=== PATIENT | female | born 1980 | race Caucasian/White ===

== ENCOUNTER 2017-06-19 16:18 | Outpatient (CLI) | payer BC ==
--- NOTE | 2017-06-19 17:32 | MRI ---
EXAM: MRI LUMBAR SPINE WITHOUT CONTRAST 06/19/17 HISTORY: Lumbar radiculopathy. Chronic lumbar spine pain. recently in the past week the patient had injections which are not helping. Patient is now having numbness and tingling in the left hip, radiating down t he left foot. COMPARISON: None. TECHNIQUE: Lumbar spine MRI is performed without intravenous gadolinium administration. Multisequential, multipl nav imaging is performed. Appropriate T1 marrow signal intensity in the lumbar vertebrae. Lumbar spine vertebral body height is maintained. There is no fracture. No significant STIR hyperintensity to suggest vertebral body edema or ligamentous injury. Conus medullaris terminates at the lower aspect of L1. Symmetric signal inten sity of the psoas muscles. Appropriate signal intensity of the visualized solid organs. T12-L1: Adequate disc hydration. No significant central canal or foraminal narrowing. L1-L2: Adequate disc hydration. No significant central canal or foraminal narrowing. L2-L3: Adequate disc hydration. No significant central canal or foraminal narrowing. L3-L4: Adequate disc hydration. No significant central canal or foraminal narrowing. L4-L5: Adequate disc hydration. There is generalized disc bulge, ligamentum flavum thickening and fac et hypertrophy without significant central canal stenosis. Neural foramina are patent bilaterally. L5-S1: Desiccation with mild loss of disc space height. There is a generalized disc bulge without sig nificant central canal stenosis. There is a T2 hyperintensity along the posterior aspect of the disc which may represent a fissure. Mild bilateral foraminal narrowing. IMPRESSION: Degenerative changes of the lumbar spine at L5-S1 with what appears to be a fissure within the disc. There is associated minimal disc bulge, without significant central canal stenosis. POS: [facility]
== END 2017-06-19 16:19 | disposition home or self-care (01) ==
LOC: MRI 16:18
PROVIDERS: ATTEND Anesthesiology Pain Medicine
DX: M47.27 Other spondylosis with radiculopathy, lumbosacral region (principal)
CPT/HCPCS: 72148

== ENCOUNTER 2017-08-28 23:01 | Emergency (ER) | payer BC ==
[2017-08-28 23:26] LABS: #Basophils 0.1 thou/uL (0.0-0.2); #Eosinphils 0.3 thou/uL (0.0-0.7); #Lymphocytes 5.9 thou/uL (1.20-3.40); #Monocytes 0.6 thou/uL (0.11-0.59); #Neutrophils 6.7 thou/uL (1.40-6.50); %Basophils 1.1 % (0.0-1.0); %Eosinophils 2.2 % (0.0-10.0); %Monocytes 4.7 % (0.0-10.0); Mean Corpuscular HGB CONC 33.7 g/dL (32.0-36.0); Mean Corpuscular Hemoglobin 30.7 pg (27.0-31.0); Mean Corpuscular Volume 91.1 fL (78.0-98.0); Mean Platelet Volume 7.2 fL (7.4-10.4); Platelet Count 370 thou/uL (130-400); RBC Distribution Width 11.9 % (11.5-14.5); Red Blood Cell (RBC) Count 4.55 mill/uL (4.20-5.40); White Blood Cell (WBC) Count 13.6 thou/uL (4.8-10.8)
--- NOTE | 2017-08-28 23:53 | RAD ---
RADIOGRAPH CHEST 1 VIEW: 08/28/17 HISTORY: 37-year-old female with mid sternal chest pain. FINDINGS: There are no air space densities, pulmonary edema, pneumothorax, or cardiomegaly. The lateral costop hrenic angles are sharp. IMPRESSION: No acute cardiopulmonary findings. alcides [] POS: [facility]
[2017-08-28 23:54] LABS: CKMB 1.1 ng/mL (0-6.6); Troponin I Less than 0.010 ng/mL (< 0.028)
== END 2017-08-29 00:23 | disposition home or self-care (01) ==
LOC: ERS 23:01
DX: R07.81 Pleurodynia (principal); E11.9 Type 2 diabetes mellitus without complications; E03.9 Hypothyroidism, unspecified; F32.9 Major depressive disorder, single episode, unspecified
CPT/HCPCS: 36415; 71045; 82553; 84484; 85025; 93005

== ENCOUNTER 2017-08-31 00:29 | Observation (INO) | payer BC ==
[2017-08-31 01:14] LABS: #Basophils 0.1 thou/uL (0.0-0.2); #Eosinphils 0.3 thou/uL (0.0-0.7); #Lymphocytes 4.2 thou/uL (1.20-3.40); #Monocytes 0.6 thou/uL (0.11-0.59); #Neutrophils 5.1 thou/uL (1.40-6.50); %Basophils 1.1 % (0.0-1.0); %Lymphocytes 40.5 % (21.0-51.0); %Monocytes 5.8 % (0.0-10.0); %Neutrophils 49.7 % (42.0-75.0); Hemoglobin 14.1 g/dL (12.0-16.0); Mean Corpuscular HGB CONC 34.5 g/dL (32.0-36.0); Mean Corpuscular Hemoglobin 31.4 pg (27.0-31.0); Mean Corpuscular Volume 90.8 fL (78.0-98.0); Mean Platelet Volume 7.3 fL (7.4-10.4); Platelet Count 355 thou/uL (130-400); RBC Distribution Width 11.8 % (11.5-14.5); White Blood Cell (WBC) Count 10.3 thou/uL (4.8-10.8)
[2017-08-31 01:24] LABS: ALT (SGPT) 11 U/L (8-55); AST (SGOT) 12 U/L (5-34); Alkaline Phosphatase 114 U/L (40-150); Anion Gap 13 mmol/L (10-20); BUN (Urea Nitrogen) 18 mg/dL (7.0-18.7); Bilirubin, Total 0.2 mg/dL (0.2-1.2); Calc. Creatinine Clearance 0 mL/min (70-130); Calcium 9.4 mg/dL (7.8-10.44); Carbon Dioxide 22 mmol/L (22-29); Chloride 105 mmol/L (98-107); Estimated GFR-MDRD 67; Globulin 3.1 g/dL (2.4-3.5); Glucose 283 mg/dL (70-105); Potassium 3.8 mmol/L (3.5-5.1); Protein, Total 7.1 g/dL (6.0-8.3); Sodium 136 mmol/L (136-145)
[2017-08-31 01:29] LABS: CKMB 0.9 ng/mL (0-6.6); Troponin I Less than 0.010 ng/mL (< 0.028)
[2017-08-31 02:07] LABS: CK (CPK) 30 U/L (29-168); Lipase 13 U/L (8-78)
[2017-08-31 05:05] LABS: Troponin I Less than 0.010 ng/mL (< 0.028)
[2017-08-31] MEDS ORDERED: Acetaminophen 325 MG TAB PO PRN ×2 (05:07→11:22)
[2017-08-31 05:56] VITALS: BMI 37.0
[2017-08-31] MEDS ORDERED: Dextrose 5% in Water 1,000 ML IV PRN (07:28)
[2017-08-31] MEDS ORDERED: Dextrose 50% Abboject 50 ML SYRINGE SLOW IVP PRN (07:28)
[2017-08-31] MEDS ORDERED: HumaLOG 300 UNITS/3 ML VIAL SC PRN ×2 (07:28)
[2017-08-31 07:40] LABS: Cardiac Risk 3.6 (Less than 4.5)
[2017-08-31 07:44] LABS: Troponin I Less than 0.010 ng/mL (< 0.028)
--- NOTE | 2017-08-31 08:46 | RAD ---
TWO VIEWS OF THE CHEST: COMPARISON: None. HISTORY: Chest pain for 2 days in the right chest. FINDINGS: Two views of the chest show normal sized cardiomediastinal silhouette. There is no evidence of consol idation, mass, or pleural effusion. The bones are unremarkable. IMPRESSION: No evidence of acute cardiopulmonary disease. POS: [facility]
[2017-08-31] MEDS ORDERED: Aspirin 325 MG TAB PO SCH ×2 (09:00)
[2017-08-31] MEDS ORDERED: Levothyroxine Sodium 25 MCG TAB PO SCH (09:00)
[2017-08-31] MEDS ORDERED: HYDROcodone/Acetaminophen 5/325 mg Tablet PO PRN (11:22)
[2017-08-31] MEDS ORDERED: Diabetic Tussin 200 MG/10 ML UDCUP PO PRN (11:22)
[2017-08-31] MEDS ORDERED: Ondansetron ODT 4 MG TAB PO PRN (11:22)
[2017-08-31] MEDS ORDERED: Eucerin (Mineral Oil/Petrolatum,White) 30 gm Jar TOP PRN (11:22)
[2017-08-31] MEDS ORDERED: Senokot 8.6 MG TAB PO PRN (11:22)
[2017-08-31] MEDS ORDERED: hydrALAZINE 20 MG/ML VIAL SLOW IVP PRN (11:22)
[2017-08-31] MEDS ORDERED: Milk Of Magnesia 30 ML UDCUP PO PRN (11:22)
[2017-08-31] MEDS ORDERED: Ondansetron HCl/PF 4 MG/2 ML Vial IVP PRN (11:22)
[2017-08-31] MEDS ORDERED: Mag-Al 1200 mg/1200 mg/30 ML UDCUP PO PRN (11:22)
[2017-08-31 11:26] VITALS: BP 128/79; TEMP 98.8
--- NOTE | 2017-08-31 11:32 | NM ---
NUCLEAR MEDICINE CARDIAC PERFUSION EXAMINATION WITH EJECTION FRACTION: HISTORY: A 37-year-old female with chest pain and diabetes. TECHNIQUE: A stress-only nuclear medicine cardiac perfusion examination was performed. This was performed using 31.7 mCi of Technetium 99m sestamibi and LexiScan. FINDINGS: No perfusion defects are seen on the tomographic images with stress. Gated images show normal wall motion with an ejection fraction of greater than 70%. EDV is 67 mL. LHR is 0.6. IMPRESSION: No perfusion defects with stress. POS: [facility]
--- NOTE | 2017-08-31 11:48 | SS ---
DATE OF ADMISSION: 08/31/2017 at 4:00 a.m. PRIMARY CARE PHYSICIAN: Dr. Ulysses Ascencio. REASON FOR ADMISSION: Chest pain. HISTORY OF PRESENT ILLNESS: A 37-year-old female who has underlying history of anxiety, depression, hypothyroidism, gastroesophageal reflux disease, diabetes type 2, and obesity, who came to emergency room with the complaint of chest pain. Patient reports that chest pain started on afternoon time. Her pain was substernal in location. Patient reports that on she had pain around 2: 00 p.m. and pain was persistent and that is why she took tramadol and her pain subsided in the evenin g time after several hours. There was no radiation. There was no association of nausea, vomiting, d iaphoresis. Again, she had similar type of substernal pain on Friday around 2:00 p.m. and patient florence s to take multiple times, tramadol and ibuprofen to reduce her pain, but medication was only momentar angel reducing her pain and pain was not going away completely. During night time around 9:00, she too k aspirin and after that her pain subsided. Again, this morning she was having similar type of pain. She took tramadol, but as she was having intermittent chest pain and that is why she was worried ab out and decided to go to emergency room for evaluation. She came to emergency room on 08/28/2017. A t that time, local workup was done and it was negative and she was discharged home. Patient denies a ny similar type of pain in the past. She denies any belching. She denies any vomiting. She denies any UTI symptoms. She denies any constipation, diarrhea, melena, hematochezia. She denies any heada ches. She denies any dizziness, syncope. She denies any orthopnea, PND or leg swelling. She never had any cardiac workup in the past. She did not have any fever or cough. She denies any r elation of chest discomfort with food, respiration or activity. She was evaluated today in the emergency room earlier and her cardiogram was normal. Routine blood t est including CBC, BMP was normal. Her D-dimer was slightly elevated and that is why CT angio was do ne, which was negative for pulmonary embolism. Her BNP was normal. Earlier today when I saw this pa tient this morning at that time, because she did not eat anything since she arrived to ER, she was hy poglycemic and that is why she was given orange juice and D50 was given. We plan for stress test lat er on today. REVIEW OF SYSTEMS: The following complete review of systems was negative, unless otherwise mentioned in the HPI or below: Constitutional: Weight loss or gain, ability to conduct usual activities. Skin: Rash, itching. Eyes: Double vision, pain. ENT/Mouth: Nose bleeding, neck stiffness, pain, tenderness. Cardiovascular: Palpitations, dyspnea on exertion, orthopnea. Respiratory: Shortness of breath, wheezing, cough, hemoptysis, fever or night sweats. Gastrointestinal: Poor appetite, abdominal pain, heartburn, nausea, vomiting, constipation, or diarr hea. Genitourinary: Urgency, frequency, dysuria, nocturia. Musculoskeletal: Pain, swelling. Neurologic/Psychiatric: Anxiety, depression. Allergy/Immunologic: Skin rash, bleeding tendency. Please see my HPI for pertinent positive and negative. All other review of systems reviewed and nega tive except as mentioned in the HPI. PAST MEDICAL HISTORY: Morbid obesity, diabetes type 2, insulin requiring, hypothyroidism, gastroesop hageal reflux disease. PAST SURGICAL HISTORY: Tonsillectomy and adenoidectomy. PAST PSYCHIATRIC HISTORY: Anxiety and depression. SOCIAL HISTORY: The patient is . She denies any tobacco, alcohol or illicit drug abuse. FAMILY HISTORY: No strong family history of premature coronary artery disease, stroke or cancer. EMERGENCY ROOM COURSE: Patient is given aspirin 324 mg, morphine 4 mg x2, IV fluid. ALLERGIES: AMOXICILLIN, LEVOFLOXACIN. CURRENT HOME MEDICATIONS: Prozac 40 mg p.o. at bedtime, NovoLog insulin as per sliding scale, Synthr oid 25 mcg p.o. daily, pravastatin 20 mg p.o. at bedtime, Seroquel 200 mg p.o. at bedtime. The patient is also taking tramadol and ibuprofen as needed basis. PHYSICAL EXAMINATION: VITAL SIGNS: On arrival, blood pressure 114/72, pulse 94, respiratory rate 18, temperature 98.0, sat uration 97% on room air, weight 99.8 kilograms. GENERAL: The patient is currently alert, awake, no obvious acute distress. HEAD: Normocephalic, atraumatic. EYES: Pupils round, reactive to light. Extraocular muscle intact. ENT: Oropharynx within normal limits. Moist mucous membranes. No oral lesion, no pharyngeal erythe ma, no exudate. NECK: Supple, no JVD, no thyromegaly, no carotid bruit. No jugular venous distention. LUNGS: Clear to auscultation without any rhonchi or rales. CARDIAC: S1, S2 regular. No murmur, no gallop, no rub. ABDOMEN: Soft, no epigastric tenderness, no Tapia sign, no peritoneal sign, no suprapubic tendernes s. No organomegaly, no mass. Obesity present. BACK: Unremarkable. No CVA tenderness. EXTREMITIES: Upper extremity, passive movement of all joints are normal. Lower extremity, no edema, no calf tenderness. Good distal pulsation. SKIN: No skin rash. HEMATOLOGIC: No lymphadenopathy. PSYCHIATRIC: Normal affect. SIGNIFICANT LABORATORY DATA AND IMAGING: EKG showing normal sinus rhythm within normal limits. Ches t x-ray based on my review, no acute cardiopulmonary process. CT angio negative for pulmonary emboli sm. Abdominal ultrasound normal. CBC: WBC 10.3, hemoglobin 14.1, platelets 355. D-dimer 0.47. BM P: Sodium 136, potassium 3.8, chloride 105, carbon dioxide 22, anion gap 13, BUN 18, creatinine 0.93 , glucose 283, calcium 9.4. LFT: AST 12, ALT 11, alkaline phosphatase 114, albumin 4.0. Cardiac en zymes negative. BNP less than 10. Triglycerides 60, cholesterol 146, LDL 93, HDL 41. ASSESSMENT AND PLAN: Chest pain. Patient has substernal chest discomfort. Her description seems li ke gastroesophageal reflux disease. She has few respective for coronary artery disease including svetlana betes, obesity, hypothyroidism, and dyslipidemia. We will plan for doing stress test to rule out acu te coronary syndrome. Her cardiac enzymes are negative. Her EKG is negative. Her D-dimer is elevat ed, but CT angio was negative for pulmonary embolism. If stress test is negative, then we will consi alverto giving her prescription for Protonix. We advised her to avoid NSAIDs. Healthy lifestyle measure s discussed with the patient. 2. Anxiety and depression. Continue Prozac 40 mg p.o. at bedtime, Seroquel 200 mg p.o. at bedtime. 3. Hypothyroidism. Continue Synthroid 25 mcg p.o. daily. 4. Dyslipidemia. Lipid profile checked and it is okay. Continue pravastatin 20 mg p.o. at bedtime. 5. Diabetes type 2. The patient will continue her insulin pump as directed. 6. Morbid obesity with BMI of 37. Dietary education given, weight loss education given. Healthy li festyle measures discussed with the patient. 7. Hypoglycemia associated with diabetes. The patient is advised to turn off her insulin pump and t he patient is given D50. 8. Gastroesophageal reflux disease. We are starting Protonix therapy. CODE STATUS: The patient is FULL CODE. The patient is making her decision by herself. Disposition plan based on stress test result, likely today. DATE OF ADMISSION: 08/31/2017 at 4:00 a.m. DATE OF DISCHARGE: 08/31/2017 DISCHARGE DISPOSITION: Home. PRIMARY DISCHARGE DIAGNOSES: Chest pain, ruled out acute coronary syndrome, likely gastroesophageal reflux disease. SECONDARY DISCHARGE DIAGNOSES: Anxiety, depression, diabetes type 2, obesity, dyslipidemia. PRIMARY PROCEDURE AND OPERATION: None. RADIOLOGIC INVESTIGATION: Chest x-ray normal. Abdominal ultrasound normal. CT angio negative for P E. Stress test result is pending. SIGNIFICANT LABORATORY DATA: Please see above my laboratory finding. CONTRAINDICATIONS: None. CODE STATUS: FULL CODE. INPATIENT CONSULTANTS: None. ALLERGIES: AMOXICILLIN, LEVOFLOXACIN. DISCHARGE PLAN: Post hospital, the patient will follow up with primary care physician in 1 week. DISCHARGE MEDICATIONS: Prozac 40 mg p.o. at bedtime, insulin pump as directed, Synthroid 25 mcg p.o. daily, Protonix 40 mg p.o. daily, pravastatin 20 mg p.o. at bedtime, Seroquel 200 mg p.o. at bedtime . HOSPITAL COURSE: The patient was admitted for chest pain. Her chest pain description what sounds li ke GERD. We did a stress test to rule out underlying ischemia. Her cardiac enzyme are negative. He r lipid profile is good. Her telemetry remained normal. She had hypoglycemia that was corrected wit h D50. The patient will continue all her previous medication. We are starting Protonix therapy. Al l new medication prescription sent to her pharmacy. Patient waiting for stress test result. If negative, then we will discharge her later on today. The patient was admitted and discharged on the same day.
[2017-08-31] MEDS ORDERED: ISOVUE-370 76%-LOCM 1 ML ONE (12:19)
[2017-08-31] MEDS ORDERED: Regadenoson 0.4 MG/5 ML SYRINGE ONE (13:27)
--- NOTE | 2017-08-31 14:15 | ULT ---
PRELIMINARY REPORT/[facility]/EMERGENTY AFTER-HOURS PROCEDURE US Abdomen Limited, Right Upper Quadrant CLINICAL HISTORY: 37 years old, female; Pain; Other: Upper abd/ chest pain TECHNIQUE: Real-time ultrasound of the right upper quadrant with image documentation. COMPARISON: No relevant prior studies available. FINDINGS: Liver: Hepatic steatosis. No intrahepatic bile duct dilation. Gallbladder: Gallbladder is distended. No wall thickening, cholelithiasis, or pericholecystic fluid. Common bile duct: Unremarkable as visualized. No stones. No dilation. Pancreas: Unremarkable as visualized. Right kidney: Unremarkable. No stones. No solid mass. No hydronephrosis. IMPRESSION: No acute findings. Thank you for allowing us to participate in the care of your patient. Dictated and Authenticated by: Dino Chow MD 08/31/2017 4:37 AM Central Time ([place] & [place]) FINAL REPORT EMERGENT AFTER HOURS RIGHT UPPER QUADRANT ABDOMINAL ULTRASOUND: FINDINGS/IMPRESSION: I agree with the findings and impression given in the preliminary report per [facility] physician. No kady dence of significant intraabdominal abnormality. Increased echogenicity of the liver may be secondar y to fatty infiltration. POS: [facility]
--- NOTE | 2017-08-31 14:18 | CT ---
PRELIMINARY REPORT/[facility]/EMERGENTY AFTER-HOURS PROCEDURE CT Angiography Chest With Intravenous Contrast CLINICAL HISTORY: 37 years old, female; Pain; Chest pain; Patient HX: F37 presents to ed C/O cp. PT reports pain began spreading to belly button and under r breast. PT reports dizziness, nausea onset today. PT has tried motrin and tramadol for relief, no effect. PT reports at 20: 30 she was in tears, chewed a baby aspir in, had no effect. TECHNIQUE: Axial computed tomographic angiography images of the chest with intravenous contrast using CT angiogr aphy protocol. MIP reconstructed images were created and reviewed. COMPARISON: No relevant prior studies available. FINDINGS: Pulmonary arteries: Normal. No pulmonary emboli. Aorta: Normal. No aortic aneurysm. No aortic dissection. Lungs: Normal. No consolidation. No masses. Pleural space: Normal. No pneumothorax. No pleural effusion. Heart: Normal. No cardiomegaly. No pericardial effusion. Mediastinum: Esophagus is unremarkable. Bones/joints: Unremarkable. No acute fracture. Soft tissues: Unremarkable. Lymph nodes: Unremarkable. No enlarged lymph nodes. IMPRESSION: No acute findings. Thank you for allowing us to participate in the care of your patient. Dictated and Authenticated by: Dino Chow MD 08/31/2017 4:44 AM Central Time ([place] & [place]) FINAL REPORT EMERGENT AFTER HOURS CTA OF THE CHEST WITH CONTRAST: TECHNIQUE: Multiple contiguous axial images were obtained in a CTA of the chest with contrast per pulmonary embo lism protocol. Three-D oblique MIP reformats and direct coronal reformats were performed. FINDINGS/IMPRESSION: I agree with the findings and impression given in the preliminary report per [facility] physician. No kady dence of pulmonary thromboembolism POS: [facility]
[2017-08-31] MEDS ORDERED: Simvastatin 5 MG TAB PO SCH (21:00)
[2017-08-31] MEDS ORDERED: Non-Formulary Item 1 EACH (Fluoxetine Hcl [Prozac] 40 MG) PO SCH (21:00)
[2017-08-31] MEDS ORDERED: FLUoxetine HCl 20 MG CAP PO SCH (21:00)
[2017-08-31] MEDS ORDERED: Pravastatin Sodium 20 MG TAB PO SCH (21:00)
== END 2017-08-31 15:01 | disposition home or self-care (01) ==
LOC: ERS 00:29 → 2SW 04:01
PROVIDERS: ADMIT Hospitalist; ATTEND Hospitalist
DX: R07.2 Precordial pain (principal); F41.8 Other specified anxiety disorders; E03.9 Hypothyroidism, unspecified; E78.5 Hyperlipidemia, unspecified; E11.9 Type 2 diabetes mellitus without complications; E66.01 Morbid (severe) obesity due to excess calories; E11.649 Type 2 diabetes mellitus with hypoglycemia without coma; K21.9 Gastro-esophageal reflux disease without esophagitis; Z68.37 Body mass index [BMI] 37.0-37.9, adult; Z88.0 Allergy status to penicillin; Z88.8 Allergy status to other drugs, medicaments and biological substances; Z79.899 Other long term (current) drug therapy
CPT/HCPCS: 36415; 36416; 71046; 71275; 76705; 78452; 80053; 80061; 82553; 83690; 83880; 84484; 85025; 85379; 93005; 93017; 96361; 96374; 96375; 96376; A9500; G0378; J1610; J2270; J2785

== ENCOUNTER 2018-02-04 23:14 | Emergency (ER) | payer BC ==
[2018-02-05] LABS: #Basophils 0.1 thou/uL (0.0-0.2); #Eosinphils 0.2 thou/uL (0.0-0.7); #Lymphocytes 4.4 thou/uL (1.20-3.40); #Monocytes 0.7 thou/uL (0.11-0.59); #Neutrophils 7.5 thou/uL (1.40-6.50); %Basophils 0.9 % (0.0-1.0); %Eosinophils 1.4 % (0.0-10.0); %Monocytes 5.3 % (0.0-10.0); %Neutrophils 58.5 % (42.0-75.0); Hemoglobin 13.9 g/dL (12.0-16.0); Mean Corpuscular HGB CONC 33.8 g/dL (32.0-36.0); Mean Corpuscular Hemoglobin 30.4 pg (27.0-31.0); Mean Corpuscular Volume 89.9 fL (78.0-98.0); Mean Platelet Volume 7.8 fL (7.4-10.4); Platelet Count 325 thou/uL (130-400); Red Blood Cell (RBC) Count 4.58 mill/uL (4.20-5.40); White Blood Cell (WBC) Count 12.8 thou/uL (4.8-10.8)
[2018-02-05 00:21] LABS: ALT (SGPT) 15 U/L (8-55); AST (SGOT) 14 U/L (5-34); Albumin 3.7 g/dL (3.5-5.0); Alkaline Phosphatase 94 U/L (40-150); Anion Gap 12 mmol/L (10-20); BUN (Urea Nitrogen) 19 mg/dL (7.0-18.7); Bilirubin, Total 0.3 mg/dL (0.2-1.2); Calc. Creatinine Clearance 0 mL/min (70-130); Calcium 8.9 mg/dL (7.8-10.44); Carbon Dioxide 24 mmol/L (22-29); Chloride 105 mmol/L (98-107); Estimated GFR-MDRD 75; Globulin 3.4 g/dL (2.4-3.5); Glucose 182 mg/dL (70-105); Potassium 3.8 mmol/L (3.5-5.1); Protein, Total 7.1 g/dL (6.0-8.3); Sodium 137 mmol/L (136-145)
[2018-02-05] MEDS ORDERED: HYDROcodone/Acetaminophen 5/325 mg Tablet ONE (00:22)
[2018-02-05] MEDS ORDERED: Dexamethasone 10 MG/ML VIAL ONE (01:18)
== END 2018-02-05 01:40 | disposition home or self-care (01) ==
LOC: ERS 23:14
DX: M79.662 Pain in left lower leg (principal); F32.9 Major depressive disorder, single episode, unspecified; E03.9 Hypothyroidism, unspecified; E11.9 Type 2 diabetes mellitus without complications; Z79.4 Long term (current) use of insulin; Z79.899 Other long term (current) drug therapy; Z79.891 Long term (current) use of opiate analgesic
CPT/HCPCS: 36415; 80053; 85025; 85652; J1100

== ENCOUNTER 2018-02-26 09:02 | Outpatient (CLI) | payer BC ==
--- NOTE | 2018-02-26 11:40 | MRI ---
MRI OF THE LUMBAR SPINE: Date: 02-26-18 Comparison: 06-19-17 History: Left lumbar radiculitis, left leg pain for two years. Technique: Multiplanar, multisequence MR imaging of the lumbar spine is provided without contrast. FINDINGS: The sagittal STIR imaging demonstrates no focal areas of osseous marrow edema. On the basis of five l umbar type vertebral bodies, the conus medullaris terminates at L1-2. T12-L1: Intervertebral disc space narrowing noted. No significant central canal or neural foraminal s tenosis. L1-2: Mild bilateral facet hypertrophy. Mild disc space narrowing. No significant central canal or ne ural foraminal stenosis. L2-3: Mild bilateral facet hypertrophy. Intervertebral disc height and signal intensity within normal limits with no significant central canal or neural foraminal stenosis. L3-4: Mild bilateral facet hypertrophy. No significant central canal or neural foraminal stenosis. L4-5: Partial disc desiccation. Minimal disc bulge with a small central disc protrusion noted. On sag ittal image 13 of 24 there is a nonspecific 6 mm focus of signal intensity which is in the anterior e pidural space on the left. It measures 5-6 mm and could represent a small sequestered disc fragment a ssociated with the central disc protrusion at the L4-5 level. This results in no significant stenosis . L4-5: No significant central canal or neural foraminal stenosis seen. L5-S1: There is disc space narrowing and disc desiccation with mild disc bulge. There is a central an nular tear extending into the right and left paracentral regions. There is mild associated central ca nal stenosis. No significant neural foraminal stenosis. The imaged retroperitoneal structures appear grossly unremarkable The central disc protrusion at L4-5 is new as is the subcentimeter focus of signal abnormality within the anterior epidural space on the left posterior to the L4 vertebral bodies. The disc desiccation a nd annular tear noted at L5-S1 does not appear significantly changed. IMPRESSION: Lower lumbar spine degenerative change as detailed above. There is a 5-6 mm focus of signal abnormali ty in the left anterior epidural space posterior to the L4 vertebral body which could represent a tin y disc fragment associated with the central disc protrusion at L3-4. This is new when compared to the prior examination performed 06-19-17. POS: [facility]
== END 2018-02-26 09:03 | disposition home or self-care (01) ==
LOC: BICMRI 09:02
PROVIDERS: ATTEND Nurse Practitioner Family
DX: M47.26 Other spondylosis with radiculopathy, lumbar region (principal)
CPT/HCPCS: 72148

== ENCOUNTER 2018-04-29 21:06 | Emergency (ER) | payer BC ==
[2018-04-29] MEDS ORDERED: Morphine 4 MG/ML VIAL ONE (22:51)
[2018-04-29] MEDS ORDERED: Triamcinolone 40 MG/ML VIAL IM SCH (23:00)
[2018-04-29 23:51] LABS: Bilirubin Negative (Negative); Blood, Urine Negative (Negative); Clarity CLEAR (Clear); Glucose, Urine (Dipstick) 100 mg/dL (Negative); Leukocyte Trace (Negative); Nitrite Negative (Negative); Protein, Urine (Dipstick) Negative (Neg-Trace); Specific Gravity, Urine 1.023 (1.002-1.036); Urobilinogen 0.2 mg/dL (0.2-1.0)
[2018-04-29 23:54] LABS: Bacteria/HPF 4+ HPF (None Seen); Hyaline Casts/LPF 0-3 HYALINE CAST LPF (0-3 Hyaline); Pathc Cast-AUWi Flag 0.43 (0-2.49); RBC/HPF 0-3 HPF (0-3); Squamous Epithelial 0-3 HPF (0-3)
[2018-04-30] MEDS ORDERED: HYDROmorphone 0.5 MG/0.5 ML SYRINGE ONE ×2 (00:06→01:03)
[2018-04-30] MEDS ORDERED: Diazepam 5 MG TAB ONE (01:03)
[2018-04-30] MEDS ORDERED: Ketorolac Tromethamine 30 MG/ML VIAL ONE (01:04)
== END 2018-04-30 01:25 | disposition home or self-care (01) ==
LOC: ERS 21:06
DX: M54.32 Sciatica, left side (principal); N30.00 Acute cystitis without hematuria; E11.9 Type 2 diabetes mellitus without complications; E03.9 Hypothyroidism, unspecified; F32.9 Major depressive disorder, single episode, unspecified; Z79.4 Long term (current) use of insulin; Z79.899 Other long term (current) drug therapy
CPT/HCPCS: 81003; 81015; 87077; 87086; 87186; 96372; J1170; J1885; J2270; J3301

== ENCOUNTER 2018-05-28 10:58 | Outpatient (CLI) | payer BC ==
[2018-05-28 11:37] LABS: Estimated GFR-MDRD - POC Greater than 90
--- NOTE | 2018-05-28 14:51 | RAD ---
LUMBAR SPINE 4 VIEWS: HISTORY: Low back pain. FINDINGS: Small ribs are present at the 1st lumbar level based on this exam. Pedicles are intact. Vertebral b murray heights and alignment are maintained. Prominent osteophytosis of the facets at the lowest 2 leve ls. No abnormal translational motion upon flexion or extension. IMPRESSION: Degenerative changes lower lumbar spine. No acute osseous abnormalities are demonstrated. POS: [facility]
--- NOTE | 2018-05-28 14:57 | MRI ---
MRI LEFT FEMUR WITH AND WITHOUT IV CONTRAST: INDICATIONS: History of left hip pain. COMPARISON: None. CONTRAST: MultiHance 20 mL. FINDINGS: Bone marrow signal intensity of the left femur appears within normal limits. There is susceptibility artifact involving the proximal knee, as well as the posterior aspect of the left hip joint, which i s likely related to magnetic susceptibility artifact from either retained foreign bodies or implants. The musculature of the left thigh appears within normal limits. The visualized sciatic nerve appears within normal limits. No lymphadenopathy is evident. No abnormal region of enhancement is noted. No bone marrow signal abnormality is grossly evident. N o joint effusion is evident within the hip joint, nor within the left knee joint. IMPRESSION: No magnetic resonance explanation for the patient's left leg pain. POS: [facility]
--- NOTE | 2018-05-28 14:59 | MRI ---
MRI LEFT HIP WITHOUT CONTRAST: INDICATIONS: History of left hip pain. COMPARISON: None. FINDINGS: The visualized intrapelvic contents appear within normal limits. No lymphadenopathy is evident. The re are some mild areas of edema overlying the greater trochanter bilaterally. The left gluteus minim us and medius tendon insertions appear within normal limits. The left hamstring and left rectus femo ris origin appears within normal limits. No muscular atrophy is present. The visualized sciatic ner ve is normal appearing. The visualized femoral nerve is normal appearing. No iliopsoas bursitis is present. There is subchondral cyst-like abnormality involving the anterior aspect of the femoral hea d and neck junction. IMPRESSION: Mild trochanteric bursitis bilaterally. POS: [facility]
== END 2018-05-28 10:59 | disposition home or self-care (01) ==
LOC: SCSMRI 10:58
PROVIDERS: ATTEND Neurological Surgery
DX: M25.552 Pain in left hip (principal); M79.605 Pain in left leg; M89.8X5 Other specified disorders of bone, thigh; M47.816 Spondylosis without myelopathy or radiculopathy, lumbar region; M70.62 Trochanteric bursitis, left hip; M70.61 Trochanteric bursitis, right hip
CPT/HCPCS: 72110; 82565

== ENCOUNTER 2018-05-31 19:33 | Observation (INO) | payer BC ==
[2018-05-31] MEDS ORDERED: Morphine 4 MG/ML VIAL ONE ×2 (20:42→22:42)
[2018-05-31 21:53] LABS: #Basophils 0.1 thou/uL (0.0-0.2); #Eosinphils 0.1 thou/uL (0.0-0.7); #Lymphocytes 3.4 thou/uL (1.20-3.40); #Monocytes 0.6 thou/uL (0.11-0.59); %Basophils 0.6 % (0.0-1.0); %Eosinophils 1.1 % (0.0-10.0); %Lymphocytes 25.8 % (21.0-51.0); %Monocytes 4.1 % (0.0-10.0); %Neutrophils 68.4 % (42.0-75.0); Hemoglobin 14.4 g/dL (12.0-16.0); Mean Corpuscular HGB CONC 33.8 g/dL (32.0-36.0); Mean Corpuscular Hemoglobin 30.8 pg (27.0-31.0); Mean Platelet Volume 7.3 fL (7.4-10.4); Platelet Count 315 thou/uL (130-400); RBC Distribution Width 11.5 % (11.5-14.5); Red Blood Cell (RBC) Count 4.68 mill/uL (4.20-5.40); White Blood Cell (WBC) Count 13.2 thou/uL (4.8-10.8)
[2018-05-31 22:00] LABS: PTT 24.9 SEC (22.9-36.1); Prothrombin Time 13.3 SEC (12.0-14.7)
[2018-05-31 22:14] LABS: Anion Gap 10 mmol/L (10-20); BUN (Urea Nitrogen) 21 mg/dL (7.0-18.7); Calc. Creatinine Clearance 0 mL/min (70-130); Calcium 9.3 mg/dL (7.8-10.44); Carbon Dioxide 25 mmol/L (22-29); Chloride 106 mmol/L (98-107); Estimated GFR-MDRD 83; Glucose 180 mg/dL (70-105); Magnesium 3.1 mg/dL (1.6-2.6); Phosphorus 2.4 mg/dL (2.3-4.7); Potassium 3.9 mmol/L (3.5-5.1); Sodium 137 mmol/L (136-145)
[2018-05-31] MEDS ORDERED: Dextrose 5% in Water 1,000 ML IV PRN (23:04)
[2018-05-31] MEDS ORDERED: traMADol HCl 50 MG TAB PO PRN (23:04)
[2018-05-31] MEDS ORDERED: hydrALAZINE 20 MG/ML VIAL SLOW IVP PRN (23:04)
[2018-05-31] MEDS ORDERED: Promethazine HCl 25 MG/ML VIAL IM PRN (23:04)
[2018-05-31] MEDS ORDERED: Ondansetron PF 4 MG/2 ML Vial IVP PRN (23:04)
[2018-05-31] MEDS ORDERED: Dextrose 50% Abboject 50 ML SYRINGE SLOW IVP PRN (23:04)
[2018-05-31 23:17] VITALS: BMI 37.8
[2018-05-31] MEDS: Sodium Chloride 0.9% 1,000 ML IV SCH (23:32)
[2018-05-31] MEDS: Acetaminophen 1,000 MG in Premix Bag 1 BAG IVPB SCH (23:43)
[2018-05-31] MEDS ORDERED: Potassium Phosphate 30 MMOL in Sodium Chloride 0.9% 500 ML IVPB SCH (23:59)
[2018-06-01] MEDS: traMADol HCl 50 MG TAB PO PRN ×3 (00:02→16:51)
[2018-06-01] MEDS: Cyclobenzaprine 10 MG TAB PO PRN ×3 (00:03→16:53)
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
[2018-06-01] MEDS: Morphine 4 MG/ML VIAL SLOW IVP PRN ×6 (02:30→22:38)
[2018-06-01] MEDS: Acetaminophen 1,000 MG in Premix Bag 1 BAG IVPB SCH ×2 (04:10→10:22)
[2018-06-01] MEDS: Ibuprofen 600 MG TAB PO SCH ×2 (05:05→15:22)
[2018-06-01] MEDS ORDERED: Insulin Regular 300 UNITS/3 ML VIAL SC PRN (06:00)
[2018-06-01] MEDS: Polyethylene Glycol 3350 17 GM Packet PO SCH (06:58)
[2018-06-01] MEDS: Senokot S 8.6-50 MG TAB PO SCH ×2 (06:58→20:26)
[2018-06-01] MEDS ORDERED: Clindamycin/D5W 900 MG in Premix Bag 1 BAG IVPB SCH (07:45)
[2018-06-01] MEDS: Sodium Chloride 0.9% 1,000 ML IV SCH (08:40)
[2018-06-01] MEDS ORDERED: Morphine 4 MG/ML VIAL SLOW IVP SCH (09:00)
[2018-06-01] MEDS ORDERED: Famotidine 20 MG TAB PO SCH (09:00)
[2018-06-01] MEDS ORDERED: Gabapentin 100 MG CAP PO SCH (09:00)
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
[2018-06-01] MEDS ORDERED: Insulin Regular 300 UNITS/3 ML VIAL ONE (11:49)
[2018-06-01] MEDS ORDERED: Fentanyl 100 MCG/2 ML VIAL ONE ×4 (11:50→15:16)
[2018-06-01] MEDS ORDERED: Midazolam HCl 2 mg/2 ml Vial ONE (11:50)
[2018-06-01] MEDS ORDERED: Clindamycin/D5W 900 mg/50 ml Premix Bag ONE (11:59)
[2018-06-01] MEDS ORDERED: Acetaminophen 500 MG TAB PO SCH (12:00)
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
[2018-06-01] MEDS ORDERED: PROPOFOL 200 MG/20 ML VIAL ONE (14:09)
[2018-06-01] MEDS ORDERED: Ketorolac Tromethamine 30 MG/ML VIAL ONE (14:09)
[2018-06-01] MEDS ORDERED: Ondansetron PF 4 MG/2 ML Vial ONE (14:09)
[2018-06-01] MEDS ORDERED: Ondansetron HCl/PF 4 MG/2 ML Vial IVP PRN (14:49)
[2018-06-01] MEDS ORDERED: Ketorolac Tromethamine 30 MG/ML VIAL IM/IV PRN (14:49)
[2018-06-01] MEDS ORDERED: Non-Formulary Medication 1 EACH PO PRN (14:49)
[2018-06-01] MEDS ORDERED: Promethazine HCl 25 MG/ML VIAL IM/IV PRN (14:49)
--- NOTE | 2018-06-01 15:23 | RAD ---
INTRAOPERATIVE FLUOROSCOPY: Date: 06/01/18 HISTORY: Fracture. COMPARISON: None. FINDINGS: Six intraoperative fluoroscopic images demonstrate placement of an intramedullary chiquita with two distal and a single interlocking screw. Distal tibia fracture is identified. Exposure: 161.8 seconds. 9.45 mGy*cm^2. IMPRESSION: Intraoperative fluoroscopy. POS: [place]
[2018-06-01] MEDS: Gabapentin 300 MG CAP PO SCH ×2 (16:00→20:26)
[2018-06-01] MEDS: HYDROcodone/Acetaminophen 5/325 mg Tablet PO PRN ×2 (17:31→23:20)
[2018-06-01] MEDS: Acetaminophen 325 MG TAB PO SCH ×2 (17:31→23:20)
[2018-06-01] MEDS ORDERED: Ketorolac Tromethamine 30 MG/ML VIAL IVP SCH (20:00)
[2018-06-01] MEDS: Clindamycin/D5W 900 MG in Premix Bag 1 BAG IVPB SCH (20:25)
[2018-06-01] MEDS ORDERED: Simvastatin 5 MG TAB PO SCH (21:00)
[2018-06-02] MEDS: Ketorolac Tromethamine 30 MG/ML VIAL IVP SCH ×2 (01:00→08:13)
[2018-06-02] MEDS: Cyclobenzaprine 10 MG TAB PO PRN (01:00)
[2018-06-02] MEDS: Clindamycin/D5W 900 MG in Premix Bag 1 BAG IVPB SCH (03:49)
[2018-06-02] MEDS: HYDROcodone/Acetaminophen 5/325 mg Tablet PO PRN ×4 (03:49→15:24)
[2018-06-02] MEDS: Acetaminophen 325 MG TAB PO SCH (05:01)
[2018-06-02 05:19] LABS: #Eosinphils 0.5 thou/uL (0.0-0.7); #Lymphocytes 3.3 thou/uL (1.20-3.40); #Monocytes 0.5 thou/uL (0.11-0.59); #Neutrophils 4.1 thou/uL (1.40-6.50); %Basophils 0.5 % (0.0-1.0); %Eosinophils 5.7 % (0.0-10.0); %Lymphocytes 39.1 % (21.0-51.0); %Monocytes 6.4 % (0.0-10.0); %Neutrophils 48.3 % (42.0-75.0); Hemoglobin 12.3 g/dL (12.0-16.0); Mean Corpuscular HGB CONC 33.7 g/dL (32.0-36.0); Mean Corpuscular Hemoglobin 31.1 pg (27.0-31.0); Mean Corpuscular Volume 92.3 fL (78.0-98.0); Mean Platelet Volume 7.7 fL (7.4-10.4); Platelet Count 250 thou/uL (130-400); RBC Distribution Width 11.5 % (11.5-14.5); Red Blood Cell (RBC) Count 3.95 mill/uL (4.20-5.40); White Blood Cell (WBC) Count 8.4 thou/uL (4.8-10.8)
[2018-06-02 05:42] LABS: Anion Gap 13 mmol/L (10-20); BUN (Urea Nitrogen) 13 mg/dL (7.0-18.7); Calc. Creatinine Clearance 150 mL/min (70-130); Calcium 8.5 mg/dL (7.8-10.44); Carbon Dioxide 23 mmol/L (22-29); Chloride 104 mmol/L (98-107); Estimated GFR-MDRD 78; Glucose 249 mg/dL (70-105); Magnesium 2.1 mg/dL (1.6-2.6); Phosphorus 3.8 mg/dL (2.3-4.7); Sodium 136 mmol/L (136-145)
[2018-06-02] MEDS ORDERED: Levothyroxine Sodium 25 MCG TAB PO SCH (06:00)
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
[2018-06-02] MEDS: Senokot S 8.6-50 MG TAB PO SCH (08:12)
[2018-06-02] MEDS: Gabapentin 300 MG CAP PO SCH ×2 (08:12→14:42)
[2018-06-02] MEDS: Polyethylene Glycol 3350 17 GM Packet PO SCH (08:12)
[2018-06-02] MEDS: Ibuprofen 600 MG TAB PO SCH ×2 (09:39→14:42)
[2018-06-02] MEDS ORDERED: traMADol HCl 50 MG TAB PO PRN (10:24)
[2018-06-02] MEDS ORDERED: Cyclobenzaprine 10 MG TAB PO PRN (10:24)
[2018-06-02] MEDS ORDERED: traMADol HCl 50 MG TAB PO SCH ×3 (10:30→18:00)
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
[2018-06-02 15:43] VITALS: BP 118/70; TEMP 98.1
[2018-06-02] MEDS ORDERED: FLUoxetine HCl 20 MG CAP PO SCH (21:00)
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
== END 2018-06-02 15:40 | disposition home or self-care (01) ==
LOC: ERS 19:33 → SURG A 20:11
PROVIDERS: ADMIT Surgery; ATTEND Surgery
PROC: 0QSH36Z Reposition Left Tibia with Intramedullary Internal Fixation Device, Percutaneous Approach (ICD-10-PCS; principal; 2018-06-01)
PROC: 0QSK06Z Reposition Left Fibula with Intramedullary Internal Fixation Device, Open Approach (ICD-10-PCS; 2018-06-01)
DX: S82.242A Displaced spiral fracture of shaft of left tibia, initial encounter for closed fracture (principal); S82.442A Displaced spiral fracture of shaft of left fibula, initial encounter for closed fracture; F41.9 Anxiety disorder, unspecified; F32.9 Major depressive disorder, single episode, unspecified; E03.9 Hypothyroidism, unspecified; E10.9 Type 1 diabetes mellitus without complications; Z90.89 Acquired absence of other organs; Z88.1 Allergy status to other antibiotic agents; Z96.41 Presence of insulin pump (external) (internal); Z79.4 Long term (current) use of insulin; Z79.899 Other long term (current) drug therapy; Z98.890 Other specified postprocedural states; V97.29XA Other parachutist accident, initial encounter
CPT/HCPCS: 36415; 36416; 76000; 80048; 83735; 84100; 85025; 85610; 85730; 96365; 96366; 96374; 96375; 96376; C1713; C1769; G0378; G0390; J0131; J1815; J1885; J2250; J2270; J2405; J2704; J3010; J3490; J7050